=== PATIENT | female | born 1985 | race Caucasian/White ===

== ENCOUNTER 2016-11-29 11:47 | Inpatient (IN) | payer MEDICAID ==
[2016-11-29] MEDS ORDERED: AMPICILLIN/SULBACTAM 3 GM in SODIUM CHLORIDE 0.9% MINIBAG 100 ML IV STA (13:25)
[2016-11-29] MEDS ORDERED: LACTATED RINGERS 1,000 ML IV STA (13:25)
[2016-11-29] MEDS ORDERED: GENTAMICIN IV STA (14:42)
[2016-11-29] MEDS ORDERED: SODIUM CHLORIDE 0.9% IV STA (14:42)
[2016-11-29] MEDS ORDERED: MIDAZOLAM 2 MG/2 ML VIAL IVP ONE (15:30)
[2016-11-29] MEDS ORDERED: ONDANSETRON 4 MG/2 ML VIAL IVP ONE (15:30)
[2016-11-29] MEDS ORDERED: KETOROLAC 30 MG/ML VIAL IVP ONE (15:30)
[2016-11-29] MEDS ORDERED: OXYTOCIN 10 UNIT/ML VIAL IV ONE (15:30)
[2016-11-29] MEDS ORDERED: PROPOFOL 1000 MG/100 ML IV ONE (15:30)
[2016-11-29] MEDS ORDERED: fentaNYL 100 MCG/2 ML VIAL IVP ONE (15:30)
[2016-11-29] MEDS ORDERED: LIDOCAINE-MPF 2% 5 ML VIAL IM ONE (15:30)
[2016-11-29] MEDS ORDERED: LACTATED RINGERS 1,000 ML IV ONE ×2 (15:36→15:39)
[2016-11-29] MEDS ORDERED: ACETAMINOPHEN 1,000 MG/100 ML 100 ML IV ONE (15:57)
[2016-11-29] MEDS ORDERED: ONDANSETRON 4 MG/2 ML VIAL IVP PRN (16:25)
[2016-11-29] MEDS ORDERED: GENTAMICIN PER PHARMACY IV SCH (17:00)
[2016-11-29] MEDS ORDERED: SODIUM CHLORIDE 0.9% IV SCH (17:00)
[2016-11-29] MEDS: GENTAMICIN 440 MG in SODIUM CHLORIDE 0.9% 100ML 100 ML IV SCH (19:08)
[2016-11-29] MEDS: KETOROLAC 30 MG/ML VIAL IVP SCH (19:08)
[2016-11-29] MEDS: LACTATED RINGERS 1,000 ML IV SCH ×2 (19:08→22:39)
[2016-11-29] MEDS: AMPICILLIN/SULBACTAM 3 GM in SODIUM CHLORIDE 0.9% MINIBAG 100 ML IV SCH (20:45)
[2016-11-29] MEDS: DOCUSATE SODIUM 100 MG CAPSULE PO SCH (20:45)
[2016-11-29] MEDS: oxyCODONE 5 MG TABLET PO PRN (21:50)
[2016-11-30] MEDS: KETOROLAC 30 MG/ML VIAL IVP SCH ×4 (00:17→18:06)
[2016-11-30] MEDS: AMPICILLIN/SULBACTAM 3 GM in SODIUM CHLORIDE 0.9% MINIBAG 100 ML IV SCH ×4 (01:59→20:36)
[2016-11-30] MEDS: oxyCODONE 5 MG TABLET PO PRN ×4 (03:47→19:24)
[2016-11-30] MEDS: LACTATED RINGERS 1,000 ML IV SCH ×3 (04:37→22:31)
[2016-11-30] MEDS ORDERED: SODIUM CHLORIDE FLUSH 0.9% 10 ML SYRINGE IVP ONE (05:25)
[2016-11-30] MEDS: DOCUSATE SODIUM 100 MG CAPSULE PO SCH ×2 (08:00→20:37)
[2016-11-30] MEDS: GENTAMICIN 440 MG in SODIUM CHLORIDE 0.9% 100ML 100 ML IV SCH (19:24)
[2016-12-01] MEDS: KETOROLAC 30 MG/ML VIAL IVP SCH ×2 (00:39→07:07)
[2016-12-01] MEDS: AMPICILLIN/SULBACTAM 3 GM in SODIUM CHLORIDE 0.9% MINIBAG 100 ML IV SCH ×2 (02:08→08:27)
[2016-12-01] MEDS: LACTATED RINGERS 1,000 ML IV SCH ×2 (02:53→02:54)
== END 2016-12-01 10:21 | disposition home or self-care (01) | DRG 769 ==
PROC: 10D17ZZ Extraction of Products of Conception, Retained, Via Natural or Artificial Opening (ICD-10-PCS; principal; 2016-11-29 15:00)
DX: O85 Puerperal sepsis (principal); O86.12 Endometritis following delivery; N71.9 Inflammatory disease of uterus, unspecified; Z82.49 Family history of ischemic heart disease and other diseases of the circulatory system; Z83.3 Family history of diabetes mellitus

== ENCOUNTER 2018-09-22 15:43 | Outpatient (CLI) | payer MEDICAID ==
--- NOTE | 2018-09-24 01:35 | Ultrasound Report ---
Reason: NEW DIFFERENT UTERINE CRAMPING IUD IN PLACE FOR Procedure Date: 09/22/2018 Accession Number: [id number] / [id number] Procedure: US - Pelvic w/Transvaginal CPT Code: FULL RESULT: EXAM: PELVIC ULTRASOUND EXAM DATE: 09/22/2018 04:15 PM. CLINICAL HISTORY: New different uterine cramping, IUD in place. COMPARISON: None. TECHNIQUE: Realtime transabdominal pelvic scan performed to identify the uterus and adnexa and as an overview of other pelvic structures, followed by transvaginal scan to provide greater detail of the uterus and adnexa, with static image documentation. FINDINGS: Uterus: 8.8 x 4.5 x 6.5 cm. Anteverted position. Normal overall size and echotexture. Masses: None. Endometrium: 2.7 mm. IUD appears to be in proper position. Cervix: Unremarkable. Right Ovary: 4.8 x 2.2 x 3.0 cm, volume 16.5 cc. Normal echotexture and blood flow. Left Ovary: 3.5 x 2.2 x 2.0 cm, volume 8.0 cc. Normal echotexture and blood flow. Free Fluid: None. Other: None. IMPRESSION: Normal pelvic ultrasound. IUD appears to be in proper position. [facility]
== END 2018-09-22 15:44 | disposition home or self-care (01) ==
LOC: DI 15:43
PROVIDERS: ATTEND Nurse Practitioner Family
DX: R10.2 Pelvic and perineal pain (principal)
CPT/HCPCS: 76830; 76856